=== PATIENT | male | born 1975 | race Caucasian/White ===

== ENCOUNTER 2017-04-20 07:22 | Day surgery (SDC) | payer OTHER ==
[~2017-04-20] VITALS: Ht 182.9 cm; Wt 73.5 kg
[2017-04-20 07:47] VITALS: BP 106/65; Ht 182.9 cm; Wt 73.5 kg
[2017-04-20] MEDS ORDERED: HYDROCODON-ACE1 EAC7 PO (10:04)
== END 2017-04-20 12:20 | disposition home or self-care (01) ==
LOC: D.OPS 07:22 → D.PAN 10:00 → D.OPS 10:00
DX: K81.1 Chronic cholecystitis (principal); Z01.812 Encounter for preprocedural laboratory examination